=== PATIENT | female | born 1970 | race Caucasian/White ===

== ENCOUNTER → 2017-08-20 | Outpatient (CLI) | payer BC ==
--- NOTE | 2017-08-20 11:17 | MM ---
Reason for exam: clinical finding. Last mammogram was performed 6 years and 6 months ago. History: Took hormonal contraceptives for 1 year. Physical Findings: Nurse Summary: 0.5cm nodule in the right breast at 9 o'clock (nurse mj). MG 3D Diag Mammo W/Cad DEX Bilateral CC and MLO view(s) were taken. Prior study comparison: February 04, 2011, bilateral digital screening mammo w/CAD. The breast tissue is heterogeneously dense. This may lower the sensitivity of mammography. There is a 6mm mass at the 8:30-9:00 position in the retroareolar right breast. There are scattered right calcifications most of which were present on the prior. No suspicious abnormality in the left breast. These results were verbally communicated with the patient and result sheet given to the patient on 08/20/17. ASSESSMENT: Suspicious, BI-RAD 4 RECOMMENDATION: Ultrasound core biopsy of the right breast. Called Dr. Anrdews with mammographic findings and has scheduled an appointment for the patient for 09/17/17 at 1:[address] Montes. PRELIMINARY REPORT CALLED AND FAXED TO DR. MONTES ON 08/20/17.
--- NOTE | 2017-08-20 11:18 | USB ---
Reason for exam: clinical finding. History: Took hormonal contraceptives for 1 year. US Breast RT Right breast ultrasound includes all four quadrants, the retroareolar region and axilla. Finding demonstrates a 4 x 3 x 5mm oval, cystic, hypoechoic, vascular lesion at 9 o'clock BB. Appears within a duct with proximal ductal ectasia possibly papilloma versus other. These results were verbally communicated with the patient and result sheet given to the patient on 08/20/17. ASSESSMENT: Suspicious, BI-RAD 4 RECOMMENDATION: Ultrasound core biopsy of the right breast. Called Dr. Andrews with mammographic findings and has scheduled an appointment for the patient for 09/17/17 at 1:[address] Montes. PRELIMINARY REPORT CALLED AND FAXED TO DR. MONTES ON 08/20/17.
== END ==
LOC: RADMAMWWP 08:51
PROVIDERS: ATTEND Family Medicine
DX: N63.41 Unspecified lump in right breast, subareolar (principal)
CPT/HCPCS: 77066; 76641; G0279

== ENCOUNTER → 2017-08-27 | Day surgery (SDC) | payer BC ==
[2017-08-27 07:23] VITALS: RESP 16; BMI 25.8
[2017-08-27 12:55] VITALS: BP 145/81; PULSE 87; TEMP 97.9
--- NOTE | 2017-08-27 14:01 | USB ---
EXAMINATION TYPE: US biopsy breast VAD RT, MG diagnostic mammo RT wo CAD DATE OF EXAM: 08/27/2017 CLINICAL HISTORY: N60.01 Solitary cyst of right breast. TECHNIQUE: Ultrasound guided core biopsy of the right breast. COMPARISON: Exams dating back to 02/04/2011 FINDINGS: The procedure of ultrasound guided core biopsy was explained to the patient. Benefits, alternatives, and risks were discussed. An informed consent was then obtained. Preprocedural timeout was performed. The patient was placed in supine positioning for imaging and for the procedure. The overlying skin was prepped and draped in usual sterile fashion. 10 cc of lidocaine buffered with bicarbonate was used as anesthetic into the skin and subcutaneous tissue up to the 4 x 3 x 5 mm mass at the 9:00 position deep to the palpable abnormality within the right breast. Under ultrasound guidance, a 12-gauge vacuum assisted biopsy gun device was used to obtain 4 core samples. Following this, a ribbon-shaped biopsy marker was left in lesion. Post biopsy mammogram demonstrates appropriate biopsy marker placement without migration. The patient tolerated the procedure well without any immediate complication. The patient was kept in the radiology department for short stay after the procedure and then discharged home in stable condition. IMPRESSION: Successful, uncomplicated ultrasound guided core biopsy of the 4 x 3 x 5 mm mass at the 9:00 position within the right breast, questioned papilloma , full pathology results to follow. 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 SEE SURGICAL PATHOLOGY CANCER CASE SUMMARY AND COMMENT. Recommendation Surgical consult of the right breast. CARLTON
== END | disposition home or self-care (01) ==
LOC: RADUSWWP 06:55
PROVIDERS: ATTEND Family Medicine
DX: D05.11 Intraductal carcinoma in situ of right breast (principal)
CPT/HCPCS: 88305; 88342; 88341; 77065; 19083; A4648; J2001

== ENCOUNTER → 2017-09-09 | Outpatient (CLI) | payer BC ==
--- NOTE | 2017-09-09 08:44 | BMR ---
EXAMINATION TYPE: MR breast BILAT wo/w con DATE OF EXAM: 09/09/2017 COMPARISON: 3-D bilateral breast mammogram August 20, 2017 BI-RADS 4. Completed right breast ultrasoun d August 20, 2017 BI-RADS 4. HISTORY: Malignant neoplasm of breast, biopsy-proven microinvasive ductal carcinoma arising and ducta l carcinoma in situ on ultrasound guided biopsy August 27, 2017. CONTRAST: Multiplanar, multisequence images of the breasts were acquired utilizing 7 mL intravenous Gadavist ga dolinium contrast. TECHNIQUE: A series of fat and water weighted images in the long and short axis views of both breasts are obtained in conjunction with dynamic contrast MRI with subtraction technique. Three-dimensional and additional postprocessing imaging is created on independent workstation and reviewed during offi cial interpretation of this study. FINDINGS: There is heterogeneously dense fibroglandular tissue in both breasts most prominent anterio r outer aspects. There is no suspicious axillary or internal mammary adenopathy identified. There is moderate fairly symmetric fibroglandular enhancement. There are few tiny scattered cysts within the fibroglandular tissue bilaterally. With regard to the left breast there is no pathologic enhancement or worrisome focal mass identified. With regard to the right breast there is artifact from biopsy clip seen best in the anterior aspect o f the lateral portion of breast series 701 image 169. There is 1.9 x 1.4 cm thin-walled fluid collect ion or post biopsy hematoma identified at this level of nipple extending inferiorly. Seen best on the external postprocessing images approximately 1 cm away from the deep inferior medial margin of the b iopsy cavity there is suspicious area of irregular nonmass enhancement measuring 2.2 x 0.9 cm 8:00 po sition with more suspicious contrast enhancement and washout in the most posterior aspect worrisome f or residual tumor. No multicentric tumor identified in the right breast.. IMPRESSION: Suspicious area on MRI roughly 1 cm away from the inferior deep medial margin of post pro cedure hematoma. No multicentric disease or suspicious lesion in the opposite left breast noted. BI-RADS 2 benign findings left breast BI-RADS 6 biopsy-proven carcinoma right breast Recommendation: Appropriate surgical management of biopsy-proven right breast carcinoma.
== END | disposition home or self-care (01) ==
LOC: RADMRIMAIN 05:59
PROVIDERS: ATTEND Surgery
DX: C50.919 Malignant neoplasm of unspecified site of unspecified female breast (principal)
CPT/HCPCS: 77059; 0159T; A9581

== ENCOUNTER 2017-10-08 09:46 | Day surgery (SDC) | payer BC ==
[2017-10-02 15:18] VITALS: BMI 25.8
--- NOTE | 2017-10-07 22:36 | P.GSHP ---
History of Present Illness H&P Date: 10/08/17 Chief Complaint: Right breast cancer 47-year-old female known to our service. Patient and her spouse felt a small lump in the subareolar region of the right breast. Lesion was about 5-7 mm in size. She had a mammogram and ultrasound both performed. Ultrasound core biopsy of a 5 mm lesion at 9:00 revealed microinvasive ductal carcinoma with DCIS. Patient ER/AZ positive HER-2/aubrey negative. MRI showed biopsy-proven right breast cancer. Posterior to the biopsy site and there was an additional area that was somewhat suspicious for residual tumor. Left breast was normal. Genetic testing was normal. Past Medical History Past Medical History: Cancer Additional Past Medical History / Comment(s): R Breast CA History of Any Multi-Drug Resistant Organisms: None Reported Past Surgical History: Appendectomy Past Anesthesia/Blood Transfusion Reactions: No Reported Reaction Smoking Status: Former smoker - Past Family History Mother Family Medical History: Deep Vein Thrombosis (DVT) Medications and Allergies Home Medications Medication Instructions Recorded Confirmed Type Ergocalciferol (Vitamin D2) 50,000 unit PO WEEKLY 08/24/17 10/02/17 History [Vitamin D2] Allergies Allergy/AdvReac Type Severity Reaction Status Date / Time No Known Allergies Allergy Verified 10/02/17 15:13 Surgical - Exam Physical exam: General: Well-developed, well-nourished HEENT: Normocephalic, sclerae nonicteric Left breast: No masses, no adenopathy Right breast: Ecchymosis and induration at 9:00, no adenopathy Abdomen: Nontender, nondistended Extremities: No edema Neuro: Alert and oriented Assessment and Plan (1) Breast cancer, right Narrative/Plan: Options discussed in detail with the patient. She remains interested in lumpectomy. We'll proceed with right breast lumpectomy with wire localization, sentinel lymph node injection, sentinel lymph node biopsy. Risks of bleeding, infection, nerve injury, seroma, axillary node dissection, positive margins, scarring, numbness, lymphedema. Patient is agreeable to postoperative radiation therapy. She understands and wishes to proceed. Status: Acute Code(s): C50.911 - MALIGNANT NEOPLASM OF UNSP SITE OF RIGHT FEMALE BREAST SNOMED Code(s): 420409666
[~2017-10-08 09:46] MED LIST: ALPRAZolam 0.5 MG TAB PO PRN; DEXAMETHASONE SOD PHOSPHATE 10 MG/ML 1 ML VIAL IV ONE; HEPARIN SODIUM,PORCINE 5,000 UNIT/ML 1 ML VIAL SQ ONE; HYDROmorphone 0.5 MG/0.5 ML SYRINGE IVP PRN; LACTATED RINGERS 1,000 ML IV SCH; MORPHINE SULFATE 4 MG/ML SYRINGE IV PRN; ONDANSETRON 4 MG/2 ML VIAL IVP ONE; Pre Op ABX Message 1 EACH MISC MISCELLANE ONE
[2017-10-08] MEDS ORDERED: LIDOCAINE 1% 20 ML VIAL (10MG/ML) FOR IV START INTRADERMA ONE (10:19)
[2017-10-08] MEDS ORDERED: LIDOCAINE 1% INJ 10MG/ML (20 ML MDV) SQ ONE (11:04)
[2017-10-08] MEDS ORDERED: SODIUM BICARB 4% 5 ML VIAL (0.48 MEQ/ML) MISCELLANE ONE (11:04)
--- NOTE | 2017-10-08 11:55 | NM ---
EXAMINATION TYPE: NM sentinel node injection DATE OF EXAM: 10/08/2017 COMPARISON: NONE HISTORY: Right-sided breast cancer TECHNIQUE AND FINDINGS: The procedure of sentinel lymph node injection was explained to the patient. The benefits, alternatives, and risks were discussed. An informed consent was then obtained. Overlying skin is cleaned with sterile alcohol. Following this, 550 uCi Tc99m Tilmanocept was inject ed in one dose upper outer aspect of the right nipple intradermally. The patient tolerated the procedure well without any immediate complication. The patient was kept in the radiology department for short stay after the procedure and then taken to surgery for surgical p rocedure what is presumed intraoperative gamma probe will be used for sentinel lymph node detection. IMPRESSION: Right breast radiotracer injection for sentinel node localization as above.
[2017-10-08] MEDS ORDERED: SUCCINYLCHOLINE CHLORIDE 100 MG/5 ML SYR IV ONE (12:48)
[2017-10-08] MEDS ORDERED: PROPOFOL 10 MG/ML 20 ML VIAL IV ONE (12:48)
[2017-10-08] MEDS ORDERED: fentaNYL (PF) 50 MCG/ML 2 ML AMP ONE (12:48)
[2017-10-08] MEDS ORDERED: ROCURONIUM BROMIDE 10 MG/ML 10 ML VIAL IV ONE (12:48)
[2017-10-08] MEDS ORDERED: MIDAZOLAM 2 MG/2 ML VIAL ONE (12:48)
[2017-10-08] MEDS ORDERED: LIDOCAINE 1% INJ 10MG/ML (20 ML MDV) ONE (12:48)
[2017-10-08] MEDS ORDERED: KETOROLAC 30 MG/ML 1 ML VIAL ONE (12:48)
[2017-10-08] MEDS ORDERED: METHYLENE BLUE 10 MG/ML (10 ML VIAL) INJ ONE ×2 (13:10)
[2017-10-08] MEDS ORDERED: LACTATED RINGERS 1,000 ML IV ONE (13:24)
[2017-10-08] MEDS ORDERED: BUPIVACAINE (PF) 0.5% 30 ML VIAL SQ ONE ×2 (13:48→14:20)
[2017-10-08 14:48] VITALS: TEMP 97.7
[2017-10-08] MEDS ORDERED: HYDROcodone/APAP 5-325MG 1 EACH TAB PO PRN (14:49)
[2017-10-08] MEDS ORDERED: NALOXONE 0.4 MG/ML 1 ML VIAL IV PRN (14:49)
--- NOTE | 2017-10-08 14:55 | P.OP ---
Date of Procedure: 10/08/17 Procedure(s) Performed: PREOPERATIVE DIAGNOSIS: Right breast cancer POSTOPERATIVE DIAGNOSIS: Same PROCEDURE: Right Breast wire localization lumpectomy with sentinel lymph node biopsy SURGEON: Yeni EBL: Minimal ANESTHESIA: General COMPLICATIONS: None OPERATIVE PROCEDURE: Patient was placed on the operating room table in the supine position. 2 mL of methylene blue was injected into the subareolar space. The breast was then massaged for 5 minutes. The right axilla was addressed at that time. The hot spot in the right axilla was identified. A small curvilinear incision was made using the scalpel. Dissection down through the subcutaneous tissues took place using electrocautery. Using the neoprobe I identified a total of 3 sentinel lymph nodes. One of these was blue in color. These were all removed and sent to pathology for close examination. Frozen sections from these lymph nodes were negative for metastatic disease. No bleeding was seen. The subcutaneous tissues were closed using 3-0 Vicryl sutures. The skin was closed using 4-0 Monocryl sutures. The wire entrance site was then addressed. This was present at the 9:00 location. The wire was directed medially. The clip was very close to the skin surface. A curvilinear incision was made around the area Shae between 11 and 7:00. Dissection in a subcutaneous plane took place laterally until the wire was identified and brought out through the incision site. There was induration immediately beneath the skin. A lumpectomy then took place circumferentially around the wire and the clip using electrocautery. Margins of 1.5-2 cm worth attempted to be achieved. I was somewhat concerned given the proximity to the skin and an additional lateral margin took place which was immediately beneath the skin. I also felt induration in the superior and anterior location and took a new portion of tissue that included both the anterior and superior margin. These were appropriately marked with the appropriate colors being on the new margin. The initial lumpectomy specimen was also painted the appropriate color. The clip was confirmed to be within the lumpectomy specimen by radiology. The subcutaneous tissues were closed using 3-0 Vicryl sutures. The skin was closed using a running 4-0 Monocryl stitch. Steri-Strips and sterile dressings were applied. DISPOSITION: Stable to recovery room
--- NOTE | 2017-10-08 15:09 | MM ---
EXAM: Needle localization with wire placement. CLINICAL HISTORY: Biopsy-proven cancer August 27, 2017 TECHNIQUE: Needle localization with wire placement and surgical excision of area of concern in the right breast. COMPARISON: MRI bilateral breasts September 09, 2017. Prior ultrasound and mammogram August 20, 2017. FINDINGS: The procedure of needle localization with wire placement and than surgical excision was explained to the patient. Benefits, alternatives, and risks were discussed. An informed consent was then obtained. The shortest pathway for procedure was chosen. Shortest pathway was lateral approach. The overlying skin was prepped and draped in usual sterile fashion. Lidocaine buffered with bicarbonate was used as anesthetic into the skin and subcutaneous tissue up to the level of area of concern. A 5 cm needle was used. It was placed via a lateral approach under mammographic guidance. Subsequent 90 degrees mammogram show the needle to be in satisfactory position relative to the targeted area. At this point, wire was placed and the needle was withdrawn. The wire was fixed to patient's skin. Images were marked for surgeon. The patient tolerated the procedure well without any immediate complication. The patient was kept in the radiology department for short stay after the procedure and then taken to surgery for surgical excision. Targeted biopsy clip and wire are identified in specimen mammogram. The patient was kept in hospital for short stay after the procedure and then discharged home in stable condition. IMPRESSION: Successful, uncomplicated needle localization with wire placement and surgical excision of suspicious group of calcifications in the right breast , full pathology results to follow. Pathology Results: Malignant A. SENTINEL LYMPH NODE #1 AND #2, BIOPSY: Two lymph nodes negative for metastasis. CK7 and ROSALINO immunoperoxidase stains performed on blocks A1 and A2 are confirmatory (controls appropriate). B. SENTINEL LYMPH NODE #3, BIOPSY: Lymph node negative for metastasis. CK2 and ROSALINO immunoperoxidase stains are confirmatory (controls appropriate). C. BREAST, RIGHT, LUMPECTOMY: Ductal carcinoma in situ (DCIS), grade 2, involving green (inferior) and orange (lateral) margins. See Surgical Pathology Cancer Case Summary. D. BREAST, RIGHT, NEW ANTERIOR MARGIN: Benign breast with fibrocystic changes. E. BREAST, RIGHT, NEW LATERAL MARGIN: Ductal carcinoma in situ (DCIS) involving the new lateral margin. See Surgical Pathology Cancer Case Summary. Recommendation Surgical consult of the right breast. (appropriate oncologic management) CARLTON
[2017-10-08] MEDS ORDERED: HYDROcodone/APAP 5-325MG 1 EACH TAB PO ONE (15:40)
[2017-10-08 16:15] VITALS: BP 120/78; PULSE 96; RESP 16
== END 2017-10-08 16:19 | disposition home or self-care (01) ==
LOC: OR 09:46
PROVIDERS: ATTEND Surgery
DX: D05.11 Intraductal carcinoma in situ of right breast (principal); N60.11 Diffuse cystic mastopathy of right breast; Z17.0 Estrogen receptor positive status [ER+]; Z87.891 Personal history of nicotine dependence
CPT/HCPCS: 19301; 38525; 81025; 88342; 88331; 88307; 88341; 76098; 19281; 38792; A9520; J2250; J1644; J1100; J2405; J2001; Q9968; J3010; J1885; J0330; J2704

== ENCOUNTER 2017-10-29 12:13 | Day surgery (SDC) | payer BC ==
[2017-10-23 14:24] VITALS: BMI 25.8
[~2017-10-29 12:13] MED LIST changes: -ALPRAZolam 0.5 MG TAB PO PRN; -HEPARIN SODIUM,PORCINE 5,000 UNIT/ML 1 ML VIAL SQ ONE; -HYDROmorphone 0.5 MG/0.5 ML SYRINGE IVP PRN; +MIDAZOLAM 2 MG/2 ML VIAL IV PRN; -MORPHINE SULFATE 4 MG/ML SYRINGE IV PRN; -ONDANSETRON 4 MG/2 ML VIAL IVP ONE
[2017-10-29] MEDS ORDERED: ceFAZolin 2,000 MG in DEXTROSE/WATER 1 50ML.BAG IVPB STA (14:08)
[2017-10-29] MEDS: ONDANSETRON 4 MG/2 ML VIAL IVP ONE ×2 (14:09→15:47)
[2017-10-29] MEDS ORDERED: HEPARIN SODIUM,PORCINE 5,000 UNIT/ML 1 ML VIAL SQ ONE (14:09)
[2017-10-29] MEDS ORDERED: ceFAZolin IN SWFI 2 GM/20 ML SYRINGE IVP STA (14:18)
[2017-10-29] MEDS ORDERED: fentaNYL (PF) 50 MCG/ML 2 ML AMP ONE (14:26)
[2017-10-29] MEDS ORDERED: MIDAZOLAM 2 MG/2 ML VIAL ONE (14:26)
[2017-10-29] MEDS ORDERED: HYDROmorphone (PF) 1 MG/ML ONE (14:26)
[2017-10-29] MEDS ORDERED: LIDOCAINE 1% INJ 10MG/ML (20 ML MDV) ONE (14:26)
[2017-10-29] MEDS ORDERED: PROPOFOL 10 MG/ML 20 ML VIAL IV ONE (14:26)
[2017-10-29] MEDS ORDERED: BUPIVACAINE (PF) 0.5% 30 ML VIAL SQ ONE ×2 (14:36→15:26)
[2017-10-29] MEDS ORDERED: SODIUM CHLORIDE 0.9% 50 ML with ceFAZolin 2,000 MG IV ONE ×2 (14:54)
[2017-10-29] MEDS ORDERED: LACTATED RINGERS 1,000 ML IV ONE ×2 (15:07)
[2017-10-29] MEDS ORDERED: HYDROcodone/APAP 5-325MG 1 EACH TAB PO PRN (15:43)
[2017-10-29] MEDS ORDERED: NALOXONE 0.4 MG/ML 1 ML VIAL IV PRN (15:43)
[2017-10-29] MEDS: HYDROmorphone 0.5 MG/0.5 ML SYRINGE IVP PRN ×4 (15:47→16:14)
[2017-10-29 15:49] VITALS: RESP 16
--- NOTE | 2017-10-29 15:49 | P.OP ---
Date of Procedure: 10/29/17 Procedure(s) Performed: PREOPERATIVE DIAGNOSIS: Right breast cancer POSTOPERATIVE DIAGNOSIS: Same PROCEDURE: Right breast re-lumpectomy SURGEON: Yeni EBL: Minimal ANESTHESIA: General COMPLICATIONS: None OPERATIVE PROCEDURE: Patient place never table in the supine position. The patient's right breast was prepped and draped in usual sterile fashion. The previous incision was re-incised. Entrance into the seroma cavity took place. At that time a re-lumpectomy took place using both sharp dissection and electrocautery. The medial inferior lateral and posterior margins were reexcised and included as 1 specimen. These new margins were painted the appropriate color. The anterior and superior margins were left intact. Following that the clip chief lock operator was used to delineate the lumpectomy cavity. The subcutaneous tissues were reapproximated using 3-0 Vicryl sutures. The skin was reapproximated using a 4-0 Monocryl sutures. Steri-Strips and sterile dressings were reapplied. DISPOSITION: Stable to recovery room
[2017-10-29 15:50] VITALS: TEMP 97.3
[2017-10-29] MEDS ORDERED: KETOROLAC 30 MG/ML 1 ML VIAL IVP ONE (15:57)
[2017-10-29] MEDS ORDERED: HYDROcodone/APAP 5-325MG 1 EACH TAB PO ONE (17:07)
[2017-10-29 17:10] VITALS: BP 128/76; PULSE 83
== END 2017-10-29 17:54 | disposition home or self-care (01) ==
LOC: OR 12:13
PROVIDERS: ATTEND Surgery
DX: C50.811 Malignant neoplasm of overlapping sites of right female breast (principal); Z87.891 Personal history of nicotine dependence
CPT/HCPCS: 81025; 88307; 19301; J2250; J1644; J1100; J2405; J2001; J3010; J1885; J1170 ×2; J0690; J2704

== ENCOUNTER 2018-04-06 10:18 | Day surgery (SDC) | payer BC ==
[2018-04-02 14:12] VITALS: BMI 24.2
[~2018-04-06 10:18] MED LIST changes: +LIDOCAINE 1% 20 ML VIAL (10MG/ML) FOR IV START INTRADERMA PRN; +MORPHINE SULFATE 4 MG/ML SYRINGE IV PRN; +ONDANSETRON 4 MG/2 ML VIAL IVP ONE; -Pre Op ABX Message 1 EACH MISC MISCELLANE ONE; +ceFAZolin IN SWFI 2 GM/20 ML SYRINGE IVP ONE; +fentaNYL (PF) 50 MCG/ML 2 ML AMP IV PRN
[2018-04-06 11:10] VITALS: TEMP 98.2
[2018-04-06] MEDS ORDERED: LACTATED RINGERS 1,000 ML IV ONE ×4 (11:28→13:59)
[2018-04-06] MEDS ORDERED: MIDAZOLAM 2 MG/2 ML VIAL ONE (11:51)
[2018-04-06] MEDS ORDERED: PROPOFOL 10 MG/ML 20 ML VIAL IV ONE (11:51)
[2018-04-06] MEDS ORDERED: ePHEDrine SULFATE/0.9% NACL/PF 50 MG/5 ML SYRINGE IV ONE (11:51)
[2018-04-06] MEDS ORDERED: SUCCINYLCHOLINE CHLORIDE 100 MG/5 ML SYR IV ONE (11:51)
[2018-04-06] MEDS ORDERED: fentaNYL (PF) 50 MCG/ML 2 ML AMP ONE (11:51)
[2018-04-06] MEDS ORDERED: LIDOCAINE 1% INJ 10MG/ML (20 ML MDV) ONE (11:51)
[2018-04-06] MEDS ORDERED: PHENYLEPHRINE-0.9% NACL SYG 1 MG/10 ML SYRINGE ONE (11:51)
[2018-04-06 14:35] VITALS: RESP 16
[2018-04-06] MEDS: HYDROmorphone 1 MG/ML 1 ML SYRINGE IVP ONE ×4 (14:36→15:17)
[2018-04-06] MEDS ORDERED: HYDROcodone/APAP 7.5-325MG 1 EACH TAB PO ONE (15:45)
[2018-04-06 16:03] VITALS: BP 136/79; PULSE 102
--- NOTE | 2018-04-06 17:34 | OP ---
OPERATIVE REPORT SURGEON: Dr. Eric Cook. DATE OF SURGERY: 04/06/2018 PREOPERATIVE DIAGNOSES: 1. Acquired loss, right and left breast. 2. Acquired deformity, right and left reconstructed breast. 3. Acquired loss, right and left breast inframammary folds. 4. Personal history of breast cancer. 5. Personal history of bilateral mastectomy. POSTOPERATIVE DIAGNOSES: 1. Acquired loss, right and left breast. 2. Acquired deformity, right and left reconstructed breast. 3. Acquired loss, right and left breast inframammary folds. 4. Personal history of breast cancer. 5. Personal history of bilateral mastectomy. OPERATIVE PROCEDURES: 1. Replace right breast tissue signal inspector with silicone breast implant for breast reconstruction. 2. Revision right reconstructed breast. 3. Replace left breast tissue signal inspector with silicone breast implant for left breast reconstruction. 4. Revision left reconstructed breast. 5. Reconstruction of right and left breast inframammary folds via local advancement flap, 72 square cm. 6. Implantation of reconstructive graft for right and left breast reconstruction. OPERATIVE INDICATIONS: The patient is a 47-year-old female who has undergone bilateral mastectomy for treatment of right breast cancer. The patient elected to undergo immediate reconstruction with her mastectomy procedures, and a tissue signal inspector style reconstruction was performed. The patient has completed subsequent outpatient tissue expansion and is returning for the second stage of her breast reconstruction. She has acquired deformities and contour irregularities of the bilateral reconstructed breast as well as malpositioning. Additionally, the inframammary folds for the right and left breast have been effaced in the mastectomy reconstructive process. She understands the potential risks and complications related to today's surgery, including but not limited to wound healing problems, infection, hematoma, seroma, among others. She has requested I perform the surgery. OPERATIVE PROCEDURE SUMMARY: The patient was seen in the presurgical area. Markings were made, procedure reviewed, all questions answered. She was transported to the operating room, where she was placed in supine position. Following induction of general tracheal anesthesia, the patient was prepped and draped in the usual fashion. The surgery was initiated on the right side. Following the markings placed preoperatively, a transverse incision was made to divide the skin in full-thickness fashion followed by elevation of skin and subcutaneous tissue flaps off the underlying muscle flap layer. Dissection was performed with cautery. Extensive dissection was required to release contour irregularities to allow for optimal re-draping of the skin envelope with today's procedure. Once this was achieved, the muscle flap was divided following the breast meridian in a vertical fashion, exposing the signal inspector. The signal inspector was removed intact. A small amount of serous fluid was in the expansion cavity, but no exudates and no granulation tissue. The cavity was irrigated. A capsulotomy incision was made where the capsule joined the chest wall circumferentially followed by multiple cruciate incisions through the capsular structure to release the tightness of this. Once this was completed, irrigation was performed. Inframammary fold was now reconstructed by developing a skin and subcutaneous tissue flap through the inferior capsulotomy portion of the incision. The Fold measured 18 x 2 cm. Dissection was performed with cautery. The skin and subcutaneous tissue flap was then advanced in a cephalad fashion and secured to the chest wall rib periosteal tissue in several discrete locations, creating the inframammary fold. The cavity was packed open with saline-moistened laparotomy pads. Attention was turned toward the left side. Again, following the diagram placed preoperatively, incision was made in transverse fashion. Skin was divided in a full- thickness fashion with a 10 blade scalpel followed by use of cauterization to divide subcutaneous tissue and then elevate skin and subcutaneous tissue flaps off the underlying muscle flap layer. Extensive dissection was required to release contour irregularities due to her mastectomy and wound healing processes that were irregular. Once this dissection was completed, hemostasis was maintained with cautery. The muscle flap layer was divided following the breast meridian in a vertical axis with cauterization exposing the signal inspector. Some Surgiflo was in the expansion cavity. The signal inspector was removed. The capsule appeared normal. There was no granulation tissue, no exudates. A complete capsulotomy incision was made where the capsule joined the chest wall with multiple cruciate incisions through the capsular structure. Additional dissection was required in the medial aspect to release muscle flap tissue where it adhered to the chest wall causing distortion. This was done with cautery. Once this was completed, irrigation was performed. Hemostasis was excellent. The left inframammary fold was now reconstructed. Again elevating skin and subcutaneous tissue flap through the inferior capsulotomy incision, dissection was performed with cautery. The flap measured 18 x 2 square cm. Once the flap was created, it was advanced in a cephalad fashion and secured to the chest wall using interrupted 2-0 Vicryl in several discrete locations, securing the flap to the periosteal rib structures. Discrete inframammary fold was created on the left in symmetrical fashion to the right. Additional modification of each reconstructed cavity was made to create optimal symmetry, mostly requiring dissection along the medial aspect of the muscle flap area on both sides. With this completed, measurements were obtained. Temporary breast implant sizers were opened on to the field. Ultimately a 475 mL breast implant sizer appeared best for the patient, evaluated with the incisions closed in the seated up position. She was returned to supine position. Temporary closure domonique were removed. The breast implant sizers were removed. Each cavity was irrigated. Hemostasis was excellent. Gloves were changed and the right-sided breast implant was placed. Both implants were [place] MemoryGel breast implant model, smooth, round, high profile, reference #[id number]. The right-sided device serial number was [id number]. The left-sided device serial number was [id number]. The implants were only handled by the surgeon. After the first implant for the right side was opened, it was irrigated with saline and inserted in the reconstructive cavity. The left-sided implant was then opened in a similar fashion, irrigated with saline and inserted directly into the reconstructive cavity. The muscle flap tissue could not be approximated over each implant without causing distortion of the implant. Therefore SurgiMend reconstructive graft was opened on the field. The SurgiMend measured 10 x 15 square cm and was thin and fenestrated. SurgiMend was revitalized in room-temperature saline. It was divided into 2 equal portions along the long axis. The muscle flap tissue on each side was approximated in cephalad fashion until placing gentle tension on the implants. The SurgiMend was inserted in each reconstructive cavity deep to the muscle flap tissue and spanning the gap where the muscle flap could not be approximated. The SurgiMend and muscle flap tissue were then inset to each other using interrupted and short running 3-0 Vicryl sutures. Complete coverage was obtained. Irrigation was performed. Hemostasis was excellent. Each incision was now closed, approximating the deep dermis using inverted interrupted 4-0 Monocryl followed by closure of superficial dermis and epidermis with a running 5-0 Prolene in each side. Surgical kramer were now cleansed with saline and dried, postoperative bandages placed using Kerlix squares secured with 3M Medipore tape in position, size 3 mammary support with additional gauze padding to the lateral aspects on each side. The patient was then awakened from her anesthetic, extubated and transferred to the recovery room in good condition with stable vital signs. Estimated blood loss was 50 mL. There were no complications. DIEGO / DEMARCUSN: [id number] /
== END 2018-04-06 16:34 | disposition home or self-care (01) ==
LOC: OR 10:18
PROVIDERS: ATTEND Plastic Surgery
DX: Z42.1 Encounter for breast reconstruction following mastectomy (principal); N65.0 Deformity of reconstructed breast; Z90.13 Acquired absence of bilateral breasts and nipples; Z85.3 Personal history of malignant neoplasm of breast; Z87.891 Personal history of nicotine dependence; Z79.818 Long term (current) use of other agents affecting estrogen receptors and estrogen levels
CPT/HCPCS: 81025; 11970; 19380; C1763; J2250; J1100; J2405; J2001; J3010; J1170; J2370; J0330; J2704; J0690

== ENCOUNTER 2019-02-02 11:21 | Day surgery (SDC) | payer BC ==
[2019-01-31 12:56] VITALS: BMI 24.2
[~2019-02-02 11:21] MED LIST changes: +HYDROmorphone 0.5 MG/0.5 ML SYRINGE IVP PRN; +KETOROLAC 30 MG/ML 1 ML VIAL IVP SCH; -MIDAZOLAM 2 MG/2 ML VIAL IV PRN; -MORPHINE SULFATE 4 MG/ML SYRINGE IV PRN; -ONDANSETRON 4 MG/2 ML VIAL IVP ONE; +ONDANSETRON 4 MG/2 ML VIAL IVP PRN; +Pre Op ABX Message 1 EACH MISC MISCELLANE ONE; +SCOPOLAMINE 1.5MG/72HR PATCH TRANSDERM ONE; -ceFAZolin IN SWFI 2 GM/20 ML SYRINGE IVP ONE; -fentaNYL (PF) 50 MCG/ML 2 ML AMP IV PRN
[2019-02-02] MEDS ORDERED: HYDROmorphone (PF) 1 MG/ML ONE (12:25)
[2019-02-02] MEDS ORDERED: ceFAZolin 1,000 MG VIAL ONE (12:25)
[2019-02-02] MEDS ORDERED: NEOSTIGMINE 1 MG/ML 10 ML VIAL ONE (12:25)
[2019-02-02] MEDS ORDERED: SUCCINYLCHOLINE CHLORIDE 100 MG/5 ML SYR IV ONE (12:25)
[2019-02-02] MEDS ORDERED: GLYCOPYRROLATE 0.2 MG/ML 2 ML VIAL ONE (12:25)
[2019-02-02] MEDS ORDERED: fentaNYL (PF) 50 MCG/ML 2 ML AMP ONE (12:25)
[2019-02-02] MEDS ORDERED: MIDAZOLAM 2 MG/2 ML VIAL ONE (12:25)
[2019-02-02] MEDS ORDERED: LIDOCAINE 1% INJ 10MG/ML (20 ML MDV) ONE (12:25)
[2019-02-02] MEDS ORDERED: ROCURONIUM BROMIDE 10 MG/ML 10 ML VIAL IV ONE (12:25)
[2019-02-02] MEDS ORDERED: SODIUM CHLORIDE 0.9% 100 ML BAG ONE (12:25)
[2019-02-02] MEDS ORDERED: PROPOFOL 10 MG/ML 20 ML VIAL IV ONE (12:25)
[2019-02-02] MEDS ORDERED: LACTATED RINGERS 1,000 ML IV ONE (13:28)
[2019-02-02 14:07] VITALS: TEMP 97.7
[2019-02-02 14:51] VITALS: RESP 16
[2019-02-02] MEDS ORDERED: HYDROcodone/APAP 5-325MG 1 EACH TAB PO ONE (15:20)
[2019-02-02 15:22] VITALS: BP 127/75; PULSE 95
--- NOTE | 2019-02-03 00:22 | OP ---
OPERATIVE REPORT DATE OF SURGERY: February 02, 2019. PREOPERATIVE DIAGNOSES: 1. 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 2. Personal history of breast cancer. POSTOPERATIVE DIAGNOSES: 1. 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 2. Personal history of breast cancer. OPERATIVE PROCEDURE: 1. Right nipple-areolar complex reconstruction. 2. Left nipple areolar complex reconstruction. 3. Implantation of reconstructive graft for right and left nipple reconstruction, 9 square cm. OPERATIVE INDICATIONS: Patient is a 48-year-old female who has undergone bilateral mastectomy for treatment of breast cancer. She elected to proceed with immediate reconstruction via tissue bedspread seamer technique completed subsequent outpatient expansion and then replacement of her tissue expanders and breast implants. She was healed from these procedures and after a thoughtful consideration is elected to proceed with further reconstruction for the nipple-areolar complex. The patient understands the staged nature of the surgical technique as well as potential risks and complications including, but not limited to wound healing problems, infection, hematoma, seroma, among others. She has requested perform the surgery. OPERATIVE PROCEDURE SUMMARY: The patient is seen presurgical area. Markings made, procedure reviewed. All questions answered. She was transported to operative room where she was placed in supine position. Following induction of general anesthesia via laryngeal mask airway. ANESTHESIA: Via laryngeal mask airway, the patient was prepped and draped in usual fashion. The location for the right and left nipple areolar complexes drawn preoperatively. Now, using this location CV flaps were diagrammed on the right and left reconstructed breast tissue. Once the flaps were diagramed, they were compared by measuring and appeared symmetrical. The right and left CV flaps were elevated using 10 blade scalpel, 1st making full-thickness skin incision and then elevating the CV flaps from the periphery to central with a 10 blade scalpel. First at just beyond skin depth thickness and then into the deeper subcutaneous tissue whereby her upon reaching the proximal portion but with each flap elevated, they were irrigated. Hemostasis was maintained with minimal use of cautery. The donor region for the CV flaps and right and left reconstructed breast were developed by dissecting with undermining the skin, subcutaneous tissue with 10 blade scalpel. Hemostasis maintained with cautery. The donor region for the right and left CV flaps were now closed approximating deep dermis using inverted interrupted 4-0 Monocryl at the V flaps for the right and left nipple-areolar complexes were now interdigitated creating a silo on each side using 5-0 and 4-0 Monocryl to inset the flaps to each other. This formed a silo structure on each side of the hand to optimize Angelica to reconstruction. Reconstructive graft was opened on the field. The SurgiMend was then nonfenestrated measuring 3 x 3 square cm revised room temperature saline and cutting the 2 equal portions of each piece. The SurgiMend was now rolled upon itself, forming a cylindrical shape and the shape was held by using a 5-0 Monocryl suture. In each cylinder, the SurgiMend was inserted and secured to the C capsule using interrupted 5-0 Monocryl. The C cap was then closed over the top of each cylinder and interrupted 5-0 Monocryl used to complete the closure of the skin level throughout. The surgical kramer cleansed with saline, dried postop bandages placed using bacitracin ointment, Adaptic, and then 4x4s with the central notch cut out to avoid any pressure to the nipple-areolar complex. All secured with tape. The patient was then awakened from her anesthetic and a laryngeal mask airway removed and transferred to recovery room in good condition stable vital signs. There were no complications. ESTIMATED BLOOD LOSS: 25 mL. MMODL / IJN: [id number] /
== END 2019-02-02 15:56 | disposition home or self-care (01) ==
LOC: OR 11:21
PROVIDERS: ATTEND Plastic Surgery
DX: Z90.10 Acquired absence of unspecified breast and nipple (principal); Z98.890 Other specified postprocedural states; Z98.82 Breast implant status; C50.919 Malignant neoplasm of unspecified site of unspecified female breast; Z79.810 Long term (current) use of selective estrogen receptor modulators (SERMs)
CPT/HCPCS: 81025; 19350; 15777; J2250; J1100; J2710; J2405; J0690; J0694; J2001; J3010; J1170; J0330; J2704

== ENCOUNTER → 2022-11-06 | Outpatient (CLI) | payer BC ==
--- NOTE | 2022-11-06 18:08 | US ---
EXAMINATION TYPE: US pelvic complete DATE OF EXAM: 11/06/2022 COMPARISON: NONE CLINICAL INDICATION: Female, 52 years old with history of N93.9 ABN UTERINE AND VAGINAL BLEEDING; abn menses bleeding for 2 weeks TECHNIQUE: Transabdominal (TA). Transabdominal sonographic images of the pelvis were acquired. EXAM MEASUREMENTS: Uterus: 9.0 x 4.3 x 5.6 cm Endometrial Stripe: .9 cm Right Ovary: 2.2 x .9 x .9 cm Left Ovary: 2.4 x 1.2 x 1.4 cm 1. Uterus: Retroverted and otherwise wnl 2. Endometrium: wnl 3. Right Ovary: wnl 4. Left Ovary: wnl 5. Bilateral Adnexa: wnl 6. Posterior cul-de-sac: wnl IMPRESSION: Retroverted uterus. No specific abnormality otherwise seen. Endometrial stripe thickness of 9 mm.
== END | disposition home or self-care (01) ==
LOC: RADUSWWP 10:13
PROVIDERS: ATTEND Family Medicine
DX: N85.4 Malposition of uterus (principal); N93.9 Abnormal uterine and vaginal bleeding, unspecified; R93.89 Abnormal findings on diagnostic imaging of other specified body structures
CPT/HCPCS: 76856